=== PATIENT | male | born 1955 | race Asian ===

== ENCOUNTER 2022-04-06 15:52 | Inpatient (IN) | payer MEDICARE ==
[~2022-04-06] VITALS: Ht 177.8 cm; Wt 64.0 kg
[2022-04-06 20:55] VITALS: BP 122/77
[2022-04-06] MEDS: SENNA 187 MG TABLET PO SCH ×2 (21:30→22:52)
[2022-04-06] MEDS: DOCUSATE SODIUM 250 MG CAPSULE PO SCH ×2 (21:30→22:52)
[2022-04-06] MEDS ORDERED: DEXTROSE 50%-WATER 25 GM/50 ML SYRINGE IVP PRN (21:45)
[2022-04-06] MEDS ORDERED: BISACODYL 5 MG EC TABLET PO PRN (22:00)
[2022-04-06 22:36] LABS: GLUCOMETER DEV NAME(LOC) 2WR.2B; GLUCOSE,POINT OF CARE 96 MG/DL (70-110)
[2022-04-06] MEDS: BACLOFEN 10 MG TABLET PO SCH (22:52)
[2022-04-06] MEDS: MELATONIN 5 MG TABLET PO PRN (22:52)
[2022-04-06] MEDS: ATORVASTATIN CALCIUM 40 MG TABLET PO SCH (22:52)
[2022-04-06] MEDS: AMIODARONE HCL 200 MG TABLET PO SCH (22:52)
[2022-04-06] MEDS: METOPROLOL TARTRATE 25 MG TABLET PO SCH (22:52)
[2022-04-06 22:53] VITALS: BP 126/71
[2022-04-06] MEDS: APIXABAN 5 MG TABLET PO SCH (22:53)
[2022-04-06] MEDS: ETHYL ALCOHOL 62% ANTISEPTIC NASAL SANITIZER 0.6 ML AMPUL NASAL SCH (22:53)
[2022-04-07] MEDS: ACETAMINOPHEN 325 MG TABLET PO PRN ×3 (03:50→16:07)
[2022-04-07 07:12] LABS: BASOPHILS % (AUTO) 0.8 % (0.0-2.0); EOSINOPHILS % (AUTO) 2.5 % (1.0-6.0); HEMATOCRIT 37.2 % (41-53); HEMOGLOBIN 12.3 g/dL (13.5-17.5); LYMPHOCYTES # (AUTO) 0.9 K/uL (1.0-4.8); MEAN CORPUSCULAR HEMOGLOBIN 28.2 pg (26.0-34.0); MEAN CORPUSCULAR HGB CONC 32.9 G/dL (31.0-37.0); MEAN CORPUSCULAR VOLUME 86 fL (80-100); MONOCYTES # (AUTO) 0.5 K/uL (0.1-1.0); MONOCYTES % (AUTO) 8.6 % (2.0-9.0); NEUTROPHILS # (AUTO) 4.7 K/uL (1.8-7.7); NEUTROPHILS % (AUTO) 74.1 % (40.0-70.0); PLATELET COUNT (AUTO) 600 K/uL (150-450); RED BLOOD CELL COUNT(AUTO) 4.35 MIL/uL (4.50-5.90); RED CELL DISTRIBUTION WIDTH 14.4 % (11.5-14.5)
[2022-04-07 07:31] LABS: ALANINE AMINOTRANSFERASE 19 U/L (12-78); ALBUMIN 2.6 g/dL (3.4-5.0); ALKALINE PHOSPHATASE 100 U/L (46-116); ANION GAP 5 mmol/L (8-16); ASPARTATE AMINOTRANSFERASE 33 U/L (15-37); BILIRUBIN,TOTAL 0.6 mg/dL (0.1-1.0); CALCIUM, TOTAL 8.9 mg/dL (8.8-10.5); CARBON DIOXIDE 30 mmol/L (22-29); CHLORIDE 102 mmol/L (98-107); CREATININE 0.92 mg/dL (0.60-1.30); GLUCOSE,RANDOM 120 mg/dL (70-110); POTASSIUM 3.8 mmol/L (3.5-5.1); SODIUM SERUM 137 mmol/L (136-145); TOTAL PROTEIN, SERUM 7.1 g/dL (6.4-8.2); UREA NITROGEN, BLOOD 15 mg/dL (7-18)
[2022-04-07 07:36] LABS: GLOMERULAR FILTR. RATE CALC > 60 mL/min (>60)
[2022-04-07 08:10] VITALS: BP 100/67
[2022-04-07 09:11] LABS: GLUCOMETER DEV NAME(LOC) 2WR.1C; GLUCOSE,POINT OF CARE 120 MG/DL (70-110)
[2022-04-07 09:25] VITALS: BP 106/69
[2022-04-07] MEDS: MetFORMIN HCL 500 MG TABLET PO SCH ×2 (09:28→16:45)
[2022-04-07] MEDS: APIXABAN 5 MG TABLET PO SCH ×2 (09:28→20:04)
[2022-04-07] MEDS: ETHYL ALCOHOL 62% ANTISEPTIC NASAL SANITIZER 0.6 ML AMPUL NASAL SCH ×2 (09:28→20:05)
[2022-04-07] MEDS: BACLOFEN 10 MG TABLET PO SCH ×3 (09:28→20:04)
[2022-04-07] MEDS: METOPROLOL TARTRATE 25 MG TABLET PO SCH ×2 (09:29→20:04)
[2022-04-07] MEDS: AMIODARONE HCL 200 MG TABLET PO SCH ×3 (09:29→20:04)
[2022-04-07 10:25] VITALS: BP 105/69
[2022-04-07] MEDS: INSULIN LISPRO 100 UNITS/ML SQ PRN ×2 (12:29→20:14)
[2022-04-07 13:56] LABS: GLUCOMETER DEV NAME(LOC) 2WR.1C; GLUCOSE,POINT OF CARE 141 MG/DL (70-110)
[2022-04-07 16:56] VITALS: BP 108/66
[2022-04-07 18:01] LABS: GLUCOMETER DEV NAME(LOC) 2WR.2B; GLUCOSE,POINT OF CARE 127 MG/DL (70-110)
[2022-04-07 19:50] VITALS: BP 128/73
[2022-04-07] MEDS: SENNA 187 MG TABLET PO SCH (20:03)
[2022-04-07] MEDS: DOCUSATE SODIUM 250 MG CAPSULE PO SCH (20:03)
[2022-04-07] MEDS: TAMSULOSIN HCL 0.4 MG CAPSULE PO SCH (20:03)
[2022-04-07] MEDS: ATORVASTATIN CALCIUM 40 MG TABLET PO SCH (20:04)
[2022-04-07 21:41] LABS: GLUCOMETER DEV NAME(LOC) 2WR.2B; GLUCOSE,POINT OF CARE 147 MG/DL (70-110)
[2022-04-07] MEDS: MELATONIN 5 MG TABLET PO PRN (23:05)
[2022-04-08 07:11] LABS: GLUCOMETER DEV NAME(LOC) 2WR.1C; GLUCOSE,POINT OF CARE 113 MG/DL (70-110)
[2022-04-08 08:05] VITALS: BP 123/71
[2022-04-08] MEDS: BACLOFEN 10 MG TABLET PO SCH ×3 (08:25→20:42)
[2022-04-08] MEDS: MetFORMIN HCL 500 MG TABLET PO SCH ×2 (08:25→17:08)
[2022-04-08] MEDS: METOPROLOL TARTRATE 25 MG TABLET PO SCH ×2 (08:25→20:43)
[2022-04-08] MEDS: AMIODARONE HCL 200 MG TABLET PO SCH ×2 (08:25→20:43)
[2022-04-08] MEDS: APIXABAN 5 MG TABLET PO SCH ×2 (08:25→20:44)
[2022-04-08] MEDS: ETHYL ALCOHOL 62% ANTISEPTIC NASAL SANITIZER 0.6 ML AMPUL NASAL SCH ×2 (08:26→20:41)
[2022-04-08 12:32] LABS: GLUCOMETER DEV NAME(LOC) 2WR.2B; GLUCOSE,POINT OF CARE 101 MG/DL (70-110)
[2022-04-08 18:17] LABS: GLUCOMETER DEV NAME(LOC) 2WR.2B; GLUCOSE,POINT OF CARE 127 MG/DL (70-110)
[2022-04-08] MEDS: TAMSULOSIN HCL 0.4 MG CAPSULE PO SCH (20:42)
[2022-04-08] MEDS: SENNA 187 MG TABLET PO SCH (20:43)
[2022-04-08] MEDS: ATORVASTATIN CALCIUM 40 MG TABLET PO SCH (20:43)
[2022-04-08] MEDS: MELATONIN 5 MG TABLET PO PRN (20:43)
[2022-04-08] MEDS: DOCUSATE SODIUM 250 MG CAPSULE PO SCH (20:44)
[2022-04-08 21:00] VITALS: BP 142/89
[2022-04-08 22:11] LABS: GLUCOMETER DEV NAME(LOC) 2WR.2B; GLUCOSE,POINT OF CARE 91 MG/DL (70-110)
[2022-04-09 06:52] LABS: GLUCOMETER DEV NAME(LOC) 2WR.2B; GLUCOSE,POINT OF CARE 101 MG/DL (70-110)
[2022-04-09 08:20] VITALS: BP 112/66
[2022-04-09] MEDS: DOCUSATE SODIUM 250 MG CAPSULE PO SCH ×2 (09:34→20:45)
[2022-04-09] MEDS: BACLOFEN 10 MG TABLET PO SCH ×3 (09:35→20:46)
[2022-04-09] MEDS: AMIODARONE HCL 200 MG TABLET PO SCH ×2 (09:35→20:46)
[2022-04-09] MEDS: MetFORMIN HCL 500 MG TABLET PO SCH ×2 (09:35→17:59)
[2022-04-09] MEDS: APIXABAN 5 MG TABLET PO SCH ×2 (09:35→20:46)
[2022-04-09] MEDS: METOPROLOL TARTRATE 25 MG TABLET PO SCH ×2 (09:36→20:47)
[2022-04-09] MEDS: ETHYL ALCOHOL 62% ANTISEPTIC NASAL SANITIZER 0.6 ML AMPUL NASAL SCH ×2 (09:36→20:45)
[2022-04-09 12:26] LABS: GLUCOMETER DEV NAME(LOC) 2WR.2B; GLUCOSE,POINT OF CARE 127 MG/DL (70-110)
[2022-04-09] MEDS: FAMOTIDINE 20 MG TABLET PO SCH (17:59)
[2022-04-09 19:01] LABS: GLUCOMETER DEV NAME(LOC) 2WR.2B; GLUCOSE,POINT OF CARE 130 MG/DL (70-110)
[2022-04-09 20:02] VITALS: BP 102/60
[2022-04-09 20:40] VITALS: BP 112/74
[2022-04-09] MEDS: TAMSULOSIN HCL 0.4 MG CAPSULE PO SCH (20:47)
[2022-04-09] MEDS: ATORVASTATIN CALCIUM 40 MG TABLET PO SCH (20:47)
[2022-04-09] MEDS: MELATONIN 5 MG TABLET PO PRN (20:50)
[2022-04-09] MEDS: SENNA 187 MG TABLET PO SCH (21:18)
[2022-04-09 21:46] LABS: GLUCOMETER DEV NAME(LOC) 2WR.2B; GLUCOSE,POINT OF CARE 112 MG/DL (70-110)
[2022-04-10] MEDS: DOCUSATE SODIUM 283 MG/5 ML MINI-ENEMA PR PRN (06:04)
[2022-04-10] MEDS: FAMOTIDINE 20 MG TABLET PO SCH ×2 (06:04→16:43)
[2022-04-10 07:35] VITALS: BP 138/83
[2022-04-10] MEDS: ETHYL ALCOHOL 62% ANTISEPTIC NASAL SANITIZER 0.6 ML AMPUL NASAL SCH ×2 (08:04→20:55)
[2022-04-10] MEDS: DOCUSATE SODIUM 250 MG CAPSULE PO SCH ×2 (08:04→20:55)
[2022-04-10] MEDS: BACLOFEN 10 MG TABLET PO SCH ×3 (08:05→20:55)
[2022-04-10] MEDS: TAMSULOSIN HCL 0.4 MG CAPSULE PO SCH ×2 (08:05→20:56)
[2022-04-10] MEDS: APIXABAN 5 MG TABLET PO SCH ×2 (08:05→20:55)
[2022-04-10] MEDS: METOPROLOL TARTRATE 25 MG TABLET PO SCH ×2 (08:06→20:56)
[2022-04-10] MEDS: AMIODARONE HCL 200 MG TABLET PO SCH ×2 (08:08→20:56)
[2022-04-10] MEDS: MetFORMIN HCL 500 MG TABLET PO SCH ×2 (08:12→16:43)
[2022-04-10 08:36] LABS: GLUCOMETER DEV NAME(LOC) 2WR.1C; GLUCOSE,POINT OF CARE 111 MG/DL (70-110)
[2022-04-10] MEDS: INSULIN LISPRO 100 UNITS/ML SQ PRN ×2 (12:38→17:50)
[2022-04-10 15:11] LABS: GLUCOMETER DEV NAME(LOC) 2WR.1C; GLUCOSE,POINT OF CARE 142 MG/DL (70-110)
[2022-04-10 17:16] LABS: GLUCOMETER DEV NAME(LOC) 2WR.1C; GLUCOSE,POINT OF CARE 181 MG/DL (70-110)
[2022-04-10 20:40] VITALS: BP 108/64
[2022-04-10] MEDS: MELATONIN 5 MG TABLET PO PRN (20:55)
[2022-04-10] MEDS: SENNA 187 MG TABLET PO SCH (20:56)
[2022-04-10] MEDS: ATORVASTATIN CALCIUM 40 MG TABLET PO SCH (20:56)
[2022-04-11 02:06] LABS: APPEARANCE,URINE CLEAR (CLEAR); BILIRUBIN,URINE NEGATIVE (NEGATIVE); GLUCOSE, URINE (UA) NEGATIVE (NEGATIVE); KETONES,URINE NEGATIVE (NEGATIVE); LEUKOCYTE ESTERASE ,URINE NEGATIVE (NEGATIVE); NITRATE,URINE NEGATIVE (NEGATIVE); OCCULT BLOOD,URINE NEGATIVE (NEGATIVE); PH,URINE 5.5 (5.0-8.0); PROTEIN,URINE NEGATIVE (NEGATIVE); SPECIFIC GRAVITIY, URINE 1.019 (1.003-1.030)
[2022-04-11 02:17] LABS: BACTERIA,URINE None Seen /HPF (None Seen); RBC,URINE 0-2 /HPF (0-2); WBC,URINE None Seen /HPF (0-5)
[2022-04-11 05:26] LABS: GLUCOMETER DEV NAME(LOC) 2WR.1C; GLUCOSE,POINT OF CARE 121 MG/DL (70-110)
[2022-04-11] MEDS: FAMOTIDINE 20 MG TABLET PO SCH ×2 (06:05→16:19)
[2022-04-11 06:51] LABS: GLUCOMETER DEV NAME(LOC) 2WR.2B; GLUCOSE,POINT OF CARE 98 MG/DL (70-110)
[2022-04-11 08:02] VITALS: BP 115/65
[2022-04-11] MEDS: ETHYL ALCOHOL 62% ANTISEPTIC NASAL SANITIZER 0.6 ML AMPUL NASAL SCH ×2 (08:10→20:20)
[2022-04-11] MEDS: DOCUSATE SODIUM 250 MG CAPSULE PO SCH ×2 (08:10→20:25)
[2022-04-11] MEDS: MetFORMIN HCL 500 MG TABLET PO SCH ×2 (08:10→16:19)
[2022-04-11] MEDS: APIXABAN 5 MG TABLET PO SCH ×2 (08:10→20:20)
[2022-04-11] MEDS: TAMSULOSIN HCL 0.4 MG CAPSULE PO SCH ×2 (08:11→20:20)
[2022-04-11] MEDS: BACLOFEN 10 MG TABLET PO SCH ×3 (08:11→20:20)
[2022-04-11] MEDS: METOPROLOL TARTRATE 25 MG TABLET PO SCH ×2 (08:11→20:20)
[2022-04-11] MEDS: AMIODARONE HCL 200 MG TABLET PO SCH ×2 (08:11→20:19)
[2022-04-11 13:16] LABS: GLUCOMETER DEV NAME(LOC) 2WR.2B; GLUCOSE,POINT OF CARE 110 MG/DL (70-110)
[2022-04-11 19:37] LABS: GLUCOMETER DEV NAME(LOC) 2WR.2B; GLUCOSE,POINT OF CARE 123 MG/DL (70-110)
[2022-04-11 20:01] VITALS: BP 125/79
[2022-04-11] MEDS: ATORVASTATIN CALCIUM 40 MG TABLET PO SCH (20:20)
[2022-04-11] MEDS: SENNA 187 MG TABLET PO SCH (20:20)
[2022-04-11] MEDS: MELATONIN 5 MG TABLET PO PRN (20:25)
[2022-04-11 21:46] LABS: GLUCOMETER DEV NAME(LOC) 2WR.2B; GLUCOSE,POINT OF CARE 82 MG/DL (70-110)
[2022-04-12] MEDS ORDERED: METF-1211 PO (06:20)
[2022-04-12] MEDS ORDERED: FAMO20TA8 PO (06:21)
[2022-04-12] MEDS ORDERED: APIX5TAB PO (06:22)
[2022-04-12] MEDS ORDERED: TAMS-13 PO (06:22)
[2022-04-12] MEDS ORDERED: METO25 PO (06:23)
[2022-04-12] MEDS ORDERED: BACL10TA PO (06:24)
[2022-04-12] MEDS ORDERED: ATOR40TA28 PO (06:24)
[2022-04-12] MEDS ORDERED: DOCU-350 PO (06:25)
[2022-04-12] MEDS ORDERED: AMIO200T68 PO (06:27)
[2022-04-12] MEDS: FAMOTIDINE 20 MG TABLET PO SCH ×2 (06:37→16:17)
[2022-04-12 07:10] LABS: GLUCOMETER DEV NAME(LOC) 2WR.1C; GLUCOSE,POINT OF CARE 98 MG/DL (70-110)
[2022-04-12 07:30] VITALS: BP 118/77
[2022-04-12] MEDS: MetFORMIN HCL 500 MG TABLET PO SCH ×2 (08:04→16:17)
[2022-04-12] MEDS: ETHYL ALCOHOL 62% ANTISEPTIC NASAL SANITIZER 0.6 ML AMPUL NASAL SCH ×2 (08:04→21:00)
[2022-04-12] MEDS: DOCUSATE SODIUM 250 MG CAPSULE PO SCH ×2 (08:04→21:00)
[2022-04-12] MEDS: TAMSULOSIN HCL 0.4 MG CAPSULE PO SCH ×2 (08:05→21:01)
[2022-04-12] MEDS: APIXABAN 5 MG TABLET PO SCH ×2 (08:05→21:00)
[2022-04-12] MEDS: BACLOFEN 10 MG TABLET PO SCH ×3 (08:05→21:02)
[2022-04-12] MEDS: AMIODARONE HCL 200 MG TABLET PO SCH ×2 (08:06→21:01)
[2022-04-12] MEDS: METOPROLOL TARTRATE 25 MG TABLET PO SCH ×2 (08:06→21:02)
[2022-04-12 20:00] VITALS: BP 129/85
[2022-04-12 20:01] LABS: GLUCOMETER DEV NAME(LOC) 2WR.1C; GLUCOSE,POINT OF CARE 103 MG/DL (70-110)
[2022-04-12 20:01] LABS: GLUCOMETER DEV NAME(LOC) 2WR.1C; GLUCOSE,POINT OF CARE 89 MG/DL (70-110)
[2022-04-12] MEDS: ATORVASTATIN CALCIUM 40 MG TABLET PO SCH (21:06)
[2022-04-12] MEDS: SENNA 187 MG TABLET PO SCH (21:06)
[2022-04-12 21:26] LABS: GLUCOMETER DEV NAME(LOC) 2WR.2B; GLUCOSE,POINT OF CARE 95 MG/DL (70-110)
[2022-04-12] MEDS: MELATONIN 5 MG TABLET PO PRN (21:55)
[2022-04-13] MEDS: FAMOTIDINE 20 MG TABLET PO SCH ×2 (06:16→16:18)
[2022-04-13] MEDS: MetFORMIN HCL 500 MG TABLET PO SCH ×2 (08:04→16:19)
[2022-04-13] MEDS: TAMSULOSIN HCL 0.4 MG CAPSULE PO SCH ×2 (08:05→21:27)
[2022-04-13] MEDS: BACLOFEN 10 MG TABLET PO SCH ×3 (08:05→21:27)
[2022-04-13] MEDS: APIXABAN 5 MG TABLET PO SCH ×2 (08:05→21:26)
[2022-04-13] MEDS: ETHYL ALCOHOL 62% ANTISEPTIC NASAL SANITIZER 0.6 ML AMPUL NASAL SCH ×2 (08:05→21:26)
[2022-04-13] MEDS: AMIODARONE HCL 200 MG TABLET PO SCH (08:05)
[2022-04-13] MEDS: DOCUSATE SODIUM 250 MG CAPSULE PO SCH ×2 (08:05→21:27)
[2022-04-13] MEDS: METOPROLOL TARTRATE 25 MG TABLET PO SCH ×2 (08:05→21:27)
[2022-04-13 08:12] VITALS: BP 115/72
[2022-04-13 08:22] LABS: GLUCOMETER DEV NAME(LOC) 2WR.1C; GLUCOSE,POINT OF CARE 75 MG/DL (70-110)
[2022-04-13 12:20] LABS: GLUCOMETER DEV NAME(LOC) 2WR.2B; GLUCOSE,POINT OF CARE 86 MG/DL (70-110)
[2022-04-13 18:31] LABS: GLUCOMETER DEV NAME(LOC) 2WR.1C; GLUCOSE,POINT OF CARE 118 MG/DL (70-110)
[2022-04-13 20:00] VITALS: BP 129/80
[2022-04-13] MEDS: ATORVASTATIN CALCIUM 40 MG TABLET PO SCH (21:26)
[2022-04-13] MEDS: SENNA 187 MG TABLET PO SCH (21:27)
[2022-04-13] MEDS: MELATONIN 5 MG TABLET PO PRN (21:29)
[2022-04-14] MEDS: DOCUSATE SODIUM 283 MG/5 ML MINI-ENEMA PR PRN (03:19)
[2022-04-14 05:56] LABS: GLUCOMETER DEV NAME(LOC) 2WR.1C; GLUCOSE,POINT OF CARE 85 MG/DL (70-110)
[2022-04-14] MEDS: FAMOTIDINE 20 MG TABLET PO SCH ×2 (06:04→17:04)
[2022-04-14 06:51] LABS: GLUCOMETER DEV NAME(LOC) 2WR.1C; GLUCOSE,POINT OF CARE 94 MG/DL (70-110)
[2022-04-14] MEDS: APIXABAN 5 MG TABLET PO SCH ×2 (08:08→19:59)
[2022-04-14] MEDS: TAMSULOSIN HCL 0.4 MG CAPSULE PO SCH ×2 (08:09→19:58)
[2022-04-14] MEDS: BACLOFEN 10 MG TABLET PO SCH ×3 (08:09→19:58)
[2022-04-14] MEDS: AMIODARONE HCL 200 MG TABLET PO SCH (08:09)
[2022-04-14] MEDS: METOPROLOL TARTRATE 25 MG TABLET PO SCH ×2 (08:09→19:58)
[2022-04-14] MEDS: DOCUSATE SODIUM 250 MG CAPSULE PO SCH ×2 (08:09→19:58)
[2022-04-14] MEDS: MetFORMIN HCL 500 MG TABLET PO SCH (08:09)
[2022-04-14 08:10] VITALS: BP 122/78
[2022-04-14] MEDS: ETHYL ALCOHOL 62% ANTISEPTIC NASAL SANITIZER 0.6 ML AMPUL NASAL SCH ×2 (08:10→19:58)
[2022-04-14 19:06] LABS: GLUCOMETER DEV NAME(LOC) 2WR.2B; GLUCOSE,POINT OF CARE 121 MG/DL (70-110)
[2022-04-14] MEDS: ATORVASTATIN CALCIUM 40 MG TABLET PO SCH (19:58)
[2022-04-14 19:59] VITALS: BP 103/64
[2022-04-14] MEDS: SENNA 187 MG TABLET PO SCH (19:59)
[2022-04-14 20:10] VITALS: BP 99/61
[2022-04-14 21:26] LABS: GLUCOMETER DEV NAME(LOC) 2WR.2B; GLUCOSE,POINT OF CARE 83 MG/DL (70-110)
[2022-04-14] MEDS: MELATONIN 5 MG TABLET PO PRN (21:56)
[2022-04-15 05:26] LABS: GLUCOMETER DEV NAME(LOC) 2WR.1C; GLUCOSE,POINT OF CARE 115 MG/DL (70-110)
[2022-04-15] MEDS: FAMOTIDINE 20 MG TABLET PO SCH ×2 (06:30→17:19)
[2022-04-15 06:42] LABS: GLUCOMETER DEV NAME(LOC) 2WR.1C; GLUCOSE,POINT OF CARE 115 MG/DL (70-110)
[2022-04-15 08:01] VITALS: BP 113/77
[2022-04-15] MEDS: APIXABAN 5 MG TABLET PO SCH ×2 (08:32→20:31)
[2022-04-15] MEDS: DOCUSATE SODIUM 250 MG CAPSULE PO SCH ×2 (08:34→21:32)
[2022-04-15] MEDS: TAMSULOSIN HCL 0.4 MG CAPSULE PO SCH ×2 (08:35→20:31)
[2022-04-15] MEDS: BACLOFEN 10 MG TABLET PO SCH ×3 (08:35→20:32)
[2022-04-15] MEDS: METOPROLOL TARTRATE 25 MG TABLET PO SCH ×2 (08:36→20:34)
[2022-04-15] MEDS: AMIODARONE HCL 200 MG TABLET PO SCH (08:37)
[2022-04-15] MEDS: ETHYL ALCOHOL 62% ANTISEPTIC NASAL SANITIZER 0.6 ML AMPUL NASAL SCH ×2 (10:41→20:31)
[2022-04-15 13:31] LABS: GLUCOMETER DEV NAME(LOC) 2WR.2B; GLUCOSE,POINT OF CARE 103 MG/DL (70-110)
[2022-04-15] MEDS: DOCUSATE SODIUM 283 MG/5 ML MINI-ENEMA PR PRN (13:56)
[2022-04-15 18:21] LABS: GLUCOMETER DEV NAME(LOC) 2WR.2B; GLUCOSE,POINT OF CARE 96 MG/DL (70-110)
[2022-04-15 19:38] VITALS: BP 100/60
[2022-04-15 20:27] VITALS: BP 123/80
[2022-04-15] MEDS: SENNA 187 MG TABLET PO SCH (20:32)
[2022-04-15] MEDS: ATORVASTATIN CALCIUM 40 MG TABLET PO SCH (20:32)
[2022-04-15] MEDS: INSULIN LISPRO 100 UNITS/ML SQ PRN (20:37)
[2022-04-15 21:21] LABS: GLUCOMETER DEV NAME(LOC) 2WR.2B; GLUCOSE,POINT OF CARE 224 MG/DL (70-110)
[2022-04-15] MEDS: MELATONIN 5 MG TABLET PO PRN (21:32)
[2022-04-16] MEDS: FAMOTIDINE 20 MG TABLET PO SCH ×2 (06:00→16:00)
[2022-04-16 06:21] LABS: GLUCOMETER DEV NAME(LOC) 2WR.2B; GLUCOSE,POINT OF CARE 89 MG/DL (70-110)
[2022-04-16 07:48] VITALS: BP 116/75
[2022-04-16] MEDS: DOCUSATE SODIUM 250 MG CAPSULE PO SCH ×2 (09:07→20:31)
[2022-04-16] MEDS: ETHYL ALCOHOL 62% ANTISEPTIC NASAL SANITIZER 0.6 ML AMPUL NASAL SCH ×2 (09:07→20:27)
[2022-04-16] MEDS: APIXABAN 5 MG TABLET PO SCH ×2 (09:08→20:31)
[2022-04-16] MEDS: BACLOFEN 10 MG TABLET PO SCH ×3 (09:08→20:28)
[2022-04-16] MEDS: TAMSULOSIN HCL 0.4 MG CAPSULE PO SCH ×2 (09:08→20:28)
[2022-04-16] MEDS: METOPROLOL TARTRATE 25 MG TABLET PO SCH ×2 (09:08→20:13)
[2022-04-16] MEDS: AMIODARONE HCL 200 MG TABLET PO SCH (09:09)
[2022-04-16 13:16] LABS: GLUCOMETER DEV NAME(LOC) 2WR.2B; GLUCOSE,POINT OF CARE 95 MG/DL (70-110)
[2022-04-16 17:17] LABS: GLUCOMETER DEV NAME(LOC) 2WR.2B; GLUCOSE,POINT OF CARE 87 MG/DL (70-110)
[2022-04-16 20:00] VITALS: BP 123/73
[2022-04-16] MEDS: SENNA 187 MG TABLET PO SCH (20:28)
[2022-04-16] MEDS: MELATONIN 5 MG TABLET PO PRN (20:28)
[2022-04-16] MEDS: ATORVASTATIN CALCIUM 40 MG TABLET PO SCH (20:29)
[2022-04-17 02:56] LABS: GLUCOMETER DEV NAME(LOC) 2WR.1C; GLUCOSE,POINT OF CARE 117 MG/DL (70-110)
[2022-04-17] MEDS: FAMOTIDINE 20 MG TABLET PO SCH ×2 (06:14→15:26)
[2022-04-17 06:31] LABS: GLUCOMETER DEV NAME(LOC) 2WR.1C; GLUCOSE,POINT OF CARE 84 MG/DL (70-110)
[2022-04-17] MEDS: ETHYL ALCOHOL 62% ANTISEPTIC NASAL SANITIZER 0.6 ML AMPUL NASAL SCH ×2 (08:22→21:02)
[2022-04-17] MEDS: METOPROLOL TARTRATE 25 MG TABLET PO SCH ×2 (08:23→21:01)
[2022-04-17] MEDS: BACLOFEN 10 MG TABLET PO SCH ×3 (08:23→21:03)
[2022-04-17] MEDS: TAMSULOSIN HCL 0.4 MG CAPSULE PO SCH ×2 (08:23→21:01)
[2022-04-17] MEDS: AMIODARONE HCL 200 MG TABLET PO SCH (08:23)
[2022-04-17] MEDS: DOCUSATE SODIUM 250 MG CAPSULE PO SCH ×2 (08:23→21:01)
[2022-04-17] MEDS: APIXABAN 5 MG TABLET PO SCH ×2 (08:24→21:01)
[2022-04-17 08:37] VITALS: BP 109/73
[2022-04-17 16:52] LABS: GLUCOMETER DEV NAME(LOC) 2WR.1C; GLUCOSE,POINT OF CARE 101 MG/DL (70-110)
[2022-04-17 20:00] VITALS: BP 129/79
[2022-04-17] MEDS: SENNA 187 MG TABLET PO SCH (21:01)
[2022-04-17] MEDS: ATORVASTATIN CALCIUM 40 MG TABLET PO SCH (21:01)
[2022-04-17] MEDS: MELATONIN 5 MG TABLET PO PRN (21:01)
[2022-04-18] MEDS: FAMOTIDINE 20 MG TABLET PO SCH ×2 (06:00→15:56)
[2022-04-18 07:46] LABS: APPEARANCE,URINE HAZY (CLEAR); BILIRUBIN,URINE NEGATIVE (NEGATIVE); GLUCOSE, URINE (UA) NEGATIVE (NEGATIVE); KETONES,URINE NEGATIVE (NEGATIVE); LEUKOCYTE ESTERASE ,URINE MODERATE (NEGATIVE); NITRATE,URINE POSITIVE (NEGATIVE); OCCULT BLOOD,URINE LARGE (NEGATIVE); PH,URINE 6.5 (5.0-8.0); PROTEIN,URINE TRACE mg/dL (NEGATIVE); SPECIFIC GRAVITIY, URINE 1.018 (1.003-1.030); UROBILINOGEN,URINE <=1.0 mg/dL (<=1.0)
[2022-04-18 08:05] VITALS: BP 114/76
[2022-04-18] MEDS: METOPROLOL TARTRATE 25 MG TABLET PO SCH ×2 (08:10→21:41)
[2022-04-18] MEDS: DOCUSATE SODIUM 250 MG CAPSULE PO SCH ×2 (08:10→21:41)
[2022-04-18] MEDS: APIXABAN 5 MG TABLET PO SCH ×2 (08:10→21:41)
[2022-04-18] MEDS: ETHYL ALCOHOL 62% ANTISEPTIC NASAL SANITIZER 0.6 ML AMPUL NASAL SCH ×2 (08:10→21:41)
[2022-04-18] MEDS: AMIODARONE HCL 200 MG TABLET PO SCH (08:11)
[2022-04-18] MEDS: BACLOFEN 10 MG TABLET PO SCH ×3 (08:11→21:41)
[2022-04-18] MEDS: TAMSULOSIN HCL 0.4 MG CAPSULE PO SCH ×2 (08:11→21:41)
[2022-04-18 08:20] LABS: BACTERIA,URINE Many /HPF (None Seen); RBC,URINE >100 /HPF (0-2); WBC,URINE 26-50 /HPF (0-5)
[2022-04-18 08:41] LABS: GLUCOMETER DEV NAME(LOC) 2WR.1C; GLUCOSE,POINT OF CARE 110 MG/DL (70-110)
[2022-04-18] MEDS: NITROFURANTOIN MONOHYD/M-CRYST 100 MG CAPSULE [MACROBID] PO SCH ×2 (10:36→21:41)
[2022-04-18 17:31] LABS: GLUCOMETER DEV NAME(LOC) 2WR.1C; GLUCOSE,POINT OF CARE 114 MG/DL (70-110)
[2022-04-18 20:20] VITALS: BP 109/65
[2022-04-18] MEDS: MELATONIN 5 MG TABLET PO PRN (21:41)
[2022-04-18] MEDS: SENNA 187 MG TABLET PO SCH (21:41)
[2022-04-18] MEDS: ATORVASTATIN CALCIUM 40 MG TABLET PO SCH (21:41)
[2022-04-19] MEDS: FAMOTIDINE 20 MG TABLET PO SCH ×2 (06:30→16:27)
[2022-04-19 06:56] LABS: GLUCOMETER DEV NAME(LOC) 2WR.2B; GLUCOSE,POINT OF CARE 97 MG/DL (70-110)
[2022-04-19 07:36] LABS: BASOPHILS % (AUTO) 0.8 % (0.0-2.0); EOSINOPHILS % (AUTO) 4.1 % (1.0-6.0); HEMATOCRIT 37.1 % (41-53); HEMOGLOBIN 12.2 g/dL (13.5-17.5); LYMPHOCYTES # (AUTO) 1.1 K/uL (1.0-4.8); LYMPHOCYTES % (AUTO) 20.4 % (22.0-44.0); MEAN CORPUSCULAR HEMOGLOBIN 28.2 pg (26.0-34.0); MEAN CORPUSCULAR HGB CONC 32.8 G/dL (31.0-37.0); MEAN CORPUSCULAR VOLUME 86 fL (80-100); MONOCYTES # (AUTO) 0.4 K/uL (0.1-1.0); MONOCYTES % (AUTO) 7.6 % (2.0-9.0); NEUTROPHILS # (AUTO) 3.7 K/uL (1.8-7.7); NEUTROPHILS % (AUTO) 67.1 % (40.0-70.0); PLATELET COUNT (AUTO) 558 K/uL (150-450); RED BLOOD CELL COUNT(AUTO) 4.31 MIL/uL (4.50-5.90); RED CELL DISTRIBUTION WIDTH 14.5 % (11.5-14.5)
[2022-04-19 07:49] LABS: ANION GAP 3 mmol/L (8-16); CALCIUM, TOTAL 9.3 mg/dL (8.8-10.5); CARBON DIOXIDE 33 mmol/L (22-29); CHLORIDE 102 mmol/L (98-107); GLOMERULAR FILTR. RATE CALC > 60 mL/min (>60); GLUCOSE,RANDOM 113 mg/dL (70-110); SODIUM SERUM 138 mmol/L (136-145); UREA NITROGEN, BLOOD 17 mg/dL (7-18)
[2022-04-19 08:00] VITALS: BP 113/69
[2022-04-19] MEDS: ETHYL ALCOHOL 62% ANTISEPTIC NASAL SANITIZER 0.6 ML AMPUL NASAL SCH ×2 (09:14→21:29)
[2022-04-19] MEDS: TAMSULOSIN HCL 0.4 MG CAPSULE PO SCH ×2 (09:14→21:30)
[2022-04-19] MEDS: NITROFURANTOIN MONOHYD/M-CRYST 100 MG CAPSULE [MACROBID] PO SCH ×2 (09:14→21:30)
[2022-04-19] MEDS: METOPROLOL TARTRATE 25 MG TABLET PO SCH ×2 (09:15→21:30)
[2022-04-19] MEDS: AMIODARONE HCL 200 MG TABLET PO SCH (09:15)
[2022-04-19] MEDS: DOCUSATE SODIUM 250 MG CAPSULE PO SCH ×2 (09:16→21:30)
[2022-04-19] MEDS: BACLOFEN 10 MG TABLET PO SCH ×3 (09:16→21:30)
[2022-04-19] MEDS: APIXABAN 5 MG TABLET PO SCH ×2 (09:16→21:30)
[2022-04-19] MEDS: INSULIN LISPRO 100 UNITS/ML SQ PRN (18:01)
[2022-04-19 18:46] LABS: GLUCOMETER DEV NAME(LOC) 2WR.2B; GLUCOSE,POINT OF CARE 172 MG/DL (70-110)
[2022-04-19 20:20] VITALS: BP 102/60
[2022-04-19 21:00] VITALS: BP 113/73
[2022-04-19] MEDS: ATORVASTATIN CALCIUM 40 MG TABLET PO SCH (21:29)
[2022-04-19] MEDS: MELATONIN 5 MG TABLET PO PRN (21:29)
[2022-04-19] MEDS: SENNA 187 MG TABLET PO SCH (21:35)
[2022-04-20 00:14] VITALS: BP 102/60
[2022-04-20] MEDS: FAMOTIDINE 20 MG TABLET PO SCH ×2 (06:21→16:20)
[2022-04-20] MEDS: METOPROLOL TARTRATE 25 MG TABLET PO SCH ×2 (07:38→20:29)
[2022-04-20] MEDS: DOCUSATE SODIUM 250 MG CAPSULE PO SCH ×2 (07:38→20:27)
[2022-04-20] MEDS: ETHYL ALCOHOL 62% ANTISEPTIC NASAL SANITIZER 0.6 ML AMPUL NASAL SCH ×2 (07:38→20:27)
[2022-04-20] MEDS: AMIODARONE HCL 200 MG TABLET PO SCH (07:39)
[2022-04-20] MEDS: TAMSULOSIN HCL 0.4 MG CAPSULE PO SCH ×2 (07:39→20:28)
[2022-04-20] MEDS: APIXABAN 5 MG TABLET PO SCH ×2 (07:39→20:28)
[2022-04-20] MEDS: NITROFURANTOIN MONOHYD/M-CRYST 100 MG CAPSULE [MACROBID] PO SCH ×2 (07:39→20:29)
[2022-04-20] MEDS: BACLOFEN 10 MG TABLET PO SCH ×3 (07:39→20:28)
[2022-04-20 09:07] VITALS: BP 142/97
[2022-04-20 17:11] LABS: GLUCOMETER DEV NAME(LOC) 2WR.1C; GLUCOSE,POINT OF CARE 112 MG/DL (70-110)
[2022-04-20 18:26] LABS: GLUCOMETER DEV NAME(LOC) 2WR.2B; GLUCOSE,POINT OF CARE 83 MG/DL (70-110)
[2022-04-20] MEDS: ATORVASTATIN CALCIUM 40 MG TABLET PO SCH (20:28)
[2022-04-20] MEDS: SENNA 187 MG TABLET PO SCH (20:29)
[2022-04-20 21:00] VITALS: BP 118/70
[2022-04-20] MEDS: MELATONIN 5 MG TABLET PO PRN (21:51)
[2022-04-21] MEDS: FAMOTIDINE 20 MG TABLET PO SCH ×2 (06:09→15:33)
[2022-04-21 06:41] LABS: GLUCOMETER DEV NAME(LOC) 2WR.2B; GLUCOSE,POINT OF CARE 104 MG/DL (70-110)
[2022-04-21] MEDS: AMIODARONE HCL 200 MG TABLET PO SCH (07:53)
[2022-04-21] MEDS: DOCUSATE SODIUM 250 MG CAPSULE PO SCH ×2 (07:53→20:30)
[2022-04-21] MEDS: ETHYL ALCOHOL 62% ANTISEPTIC NASAL SANITIZER 0.6 ML AMPUL NASAL SCH ×2 (07:53→20:31)
[2022-04-21] MEDS: NITROFURANTOIN MONOHYD/M-CRYST 100 MG CAPSULE [MACROBID] PO SCH ×2 (07:53→20:31)
[2022-04-21] MEDS: METOPROLOL TARTRATE 25 MG TABLET PO SCH ×2 (07:53→20:30)
[2022-04-21] MEDS: TAMSULOSIN HCL 0.4 MG CAPSULE PO SCH ×2 (07:53→20:30)
[2022-04-21] MEDS: APIXABAN 5 MG TABLET PO SCH ×2 (07:53→20:30)
[2022-04-21] MEDS: BACLOFEN 10 MG TABLET PO SCH ×3 (07:54→20:31)
[2022-04-21 08:16] VITALS: BP 114/79
[2022-04-21 16:51] LABS: GLUCOMETER DEV NAME(LOC) 2WR.1C; GLUCOSE,POINT OF CARE 111 MG/DL (70-110)
[2022-04-21 20:20] VITALS: BP 107/68
[2022-04-21] MEDS: MELATONIN 5 MG TABLET PO PRN (20:30)
[2022-04-21] MEDS: ATORVASTATIN CALCIUM 40 MG TABLET PO SCH (20:30)
[2022-04-21] MEDS: SENNA 187 MG TABLET PO SCH (20:30)
[2022-04-21] MEDS: DOCUSATE SODIUM 283 MG/5 ML MINI-ENEMA PR PRN (21:34)
[2022-04-22] MEDS: FAMOTIDINE 20 MG TABLET PO SCH ×2 (06:41→17:38)
[2022-04-22 07:26] LABS: GLUCOMETER DEV NAME(LOC) 2WR.2B; GLUCOSE,POINT OF CARE 103 MG/DL (70-110)
[2022-04-22 08:10] VITALS: BP 117/77
[2022-04-22] MEDS: APIXABAN 5 MG TABLET PO SCH ×2 (09:04→20:35)
[2022-04-22] MEDS: DOCUSATE SODIUM 250 MG CAPSULE PO SCH ×2 (09:04→20:32)
[2022-04-22] MEDS: METOPROLOL TARTRATE 25 MG TABLET PO SCH ×2 (09:04→20:33)
[2022-04-22] MEDS: ETHYL ALCOHOL 62% ANTISEPTIC NASAL SANITIZER 0.6 ML AMPUL NASAL SCH ×2 (09:04→20:32)
[2022-04-22] MEDS: TAMSULOSIN HCL 0.4 MG CAPSULE PO SCH ×2 (09:04→20:32)
[2022-04-22] MEDS: NITROFURANTOIN MONOHYD/M-CRYST 100 MG CAPSULE [MACROBID] PO SCH ×2 (09:04→20:32)
[2022-04-22] MEDS: BACLOFEN 10 MG TABLET PO SCH ×3 (09:04→20:33)
[2022-04-22] MEDS: AMIODARONE HCL 200 MG TABLET PO SCH (09:04)
[2022-04-22 18:16] LABS: GLUCOMETER DEV NAME(LOC) 2WR.1C; GLUCOSE,POINT OF CARE 95 MG/DL (70-110)
[2022-04-22 20:00] VITALS: BP 131/93
[2022-04-22] MEDS: SENNA 187 MG TABLET PO SCH (20:32)
[2022-04-22] MEDS: MELATONIN 5 MG TABLET PO PRN (20:32)
[2022-04-22] MEDS: ATORVASTATIN CALCIUM 40 MG TABLET PO SCH (20:33)
[2022-04-23 01:00] VITALS: BP 108/71
[2022-04-23] MEDS: FAMOTIDINE 20 MG TABLET PO SCH ×2 (06:13→16:24)
[2022-04-23 06:46] LABS: GLUCOMETER DEV NAME(LOC) 2WR.2B; GLUCOSE,POINT OF CARE 113 MG/DL (70-110)
[2022-04-23 08:10] VITALS: BP 127/87
[2022-04-23] MEDS: DOCUSATE SODIUM 250 MG CAPSULE PO SCH ×2 (09:06→20:41)
[2022-04-23] MEDS: APIXABAN 5 MG TABLET PO SCH ×2 (09:06→20:41)
[2022-04-23] MEDS: NITROFURANTOIN MONOHYD/M-CRYST 100 MG CAPSULE [MACROBID] PO SCH ×2 (09:06→20:42)
[2022-04-23] MEDS: ETHYL ALCOHOL 62% ANTISEPTIC NASAL SANITIZER 0.6 ML AMPUL NASAL SCH ×2 (09:06→20:40)
[2022-04-23] MEDS: BACLOFEN 10 MG TABLET PO SCH ×3 (09:06→20:42)
[2022-04-23] MEDS: METOPROLOL TARTRATE 25 MG TABLET PO SCH ×2 (09:06→20:42)
[2022-04-23] MEDS: TAMSULOSIN HCL 0.4 MG CAPSULE PO SCH ×2 (09:07→20:42)
[2022-04-23] MEDS: AMIODARONE HCL 200 MG TABLET PO SCH (09:07)
[2022-04-23 17:52] LABS: GLUCOMETER DEV NAME(LOC) 2WR.2B; GLUCOSE,POINT OF CARE 99 MG/DL (70-110)
[2022-04-23] MEDS: ATORVASTATIN CALCIUM 40 MG TABLET PO SCH (20:42)
[2022-04-23] MEDS: SENNA 187 MG TABLET PO SCH (20:43)
[2022-04-23 20:46] VITALS: BP 108/71
[2022-04-23] MEDS: MELATONIN 5 MG TABLET PO PRN (22:38)
[2022-04-24] MEDS: FAMOTIDINE 20 MG TABLET PO SCH ×2 (06:20→15:54)
[2022-04-24 07:11] LABS: GLUCOMETER DEV NAME(LOC) 2WR.2B; GLUCOSE,POINT OF CARE 120 MG/DL (70-110)
[2022-04-24 07:40] VITALS: BP 117/78
[2022-04-24] MEDS: TAMSULOSIN HCL 0.4 MG CAPSULE PO SCH ×2 (08:12→20:23)
[2022-04-24] MEDS: METOPROLOL TARTRATE 25 MG TABLET PO SCH ×2 (08:12→20:24)
[2022-04-24] MEDS: DOCUSATE SODIUM 250 MG CAPSULE PO SCH ×2 (08:12→20:23)
[2022-04-24] MEDS: APIXABAN 5 MG TABLET PO SCH ×2 (08:12→20:24)
[2022-04-24] MEDS: BACLOFEN 10 MG TABLET PO SCH ×3 (08:12→20:23)
[2022-04-24] MEDS: NITROFURANTOIN MONOHYD/M-CRYST 100 MG CAPSULE [MACROBID] PO SCH ×2 (08:13→20:23)
[2022-04-24] MEDS: AMIODARONE HCL 200 MG TABLET PO SCH (08:13)
[2022-04-24] MEDS: ETHYL ALCOHOL 62% ANTISEPTIC NASAL SANITIZER 0.6 ML AMPUL NASAL SCH ×2 (08:13→20:24)
[2022-04-24 20:10] VITALS: BP 109/68
[2022-04-24] MEDS: SENNA 187 MG TABLET PO SCH (20:23)
[2022-04-24] MEDS: MELATONIN 5 MG TABLET PO PRN (20:23)
[2022-04-24] MEDS: ATORVASTATIN CALCIUM 40 MG TABLET PO SCH (20:24)
[2022-04-25] MEDS: FAMOTIDINE 20 MG TABLET PO SCH ×2 (06:17→15:44)
[2022-04-25] MEDS: DOCUSATE SODIUM 250 MG CAPSULE PO SCH ×2 (08:20→20:24)
[2022-04-25] MEDS: ETHYL ALCOHOL 62% ANTISEPTIC NASAL SANITIZER 0.6 ML AMPUL NASAL SCH ×2 (08:20→20:23)
[2022-04-25] MEDS: NITROFURANTOIN MONOHYD/M-CRYST 100 MG CAPSULE [MACROBID] PO SCH ×2 (08:20→20:23)
[2022-04-25] MEDS: TAMSULOSIN HCL 0.4 MG CAPSULE PO SCH ×2 (08:20→20:23)
[2022-04-25] MEDS: AMIODARONE HCL 200 MG TABLET PO SCH (08:21)
[2022-04-25] MEDS: APIXABAN 5 MG TABLET PO SCH ×2 (08:21→20:24)
[2022-04-25] MEDS: BACLOFEN 10 MG TABLET PO SCH ×3 (08:21→20:23)
[2022-04-25] MEDS: METOPROLOL TARTRATE 25 MG TABLET PO SCH ×2 (08:21→20:24)
[2022-04-25 08:56] VITALS: BP 130/79
[2022-04-25 20:15] VITALS: BP 112/64
[2022-04-25] MEDS: ATORVASTATIN CALCIUM 40 MG TABLET PO SCH (20:23)
[2022-04-25] MEDS: MELATONIN 5 MG TABLET PO PRN (20:23)
[2022-04-25] MEDS: SENNA 187 MG TABLET PO SCH (20:24)
[2022-04-26] MEDS: FAMOTIDINE 20 MG TABLET PO SCH ×2 (06:18→17:11)
[2022-04-26 08:30] VITALS: BP 122/58
[2022-04-26] MEDS: APIXABAN 5 MG TABLET PO SCH ×2 (08:32→20:10)
[2022-04-26] MEDS: DOCUSATE SODIUM 250 MG CAPSULE PO SCH ×2 (08:32→20:10)
[2022-04-26] MEDS: NITROFURANTOIN MONOHYD/M-CRYST 100 MG CAPSULE [MACROBID] PO SCH ×2 (08:33→20:10)
[2022-04-26] MEDS: TAMSULOSIN HCL 0.4 MG CAPSULE PO SCH ×2 (08:33→20:10)
[2022-04-26] MEDS: BACLOFEN 10 MG TABLET PO SCH ×3 (08:33→20:10)
[2022-04-26] MEDS: METOPROLOL TARTRATE 25 MG TABLET PO SCH ×2 (08:34→20:10)
[2022-04-26] MEDS: AMIODARONE HCL 200 MG TABLET PO SCH (08:34)
[2022-04-26] MEDS: ETHYL ALCOHOL 62% ANTISEPTIC NASAL SANITIZER 0.6 ML AMPUL NASAL SCH ×2 (08:50→20:10)
[2022-04-26] MEDS: ATORVASTATIN CALCIUM 40 MG TABLET PO SCH (20:10)
[2022-04-26] MEDS: SENNA 187 MG TABLET PO SCH (20:10)
[2022-04-26] MEDS: MELATONIN 5 MG TABLET PO PRN (20:10)
[2022-04-26 20:14] VITALS: BP 118/77
[2022-04-27] MEDS: FAMOTIDINE 20 MG TABLET PO SCH ×2 (06:30→17:13)
[2022-04-27 08:30] VITALS: BP 132/92
[2022-04-27] MEDS: ETHYL ALCOHOL 62% ANTISEPTIC NASAL SANITIZER 0.6 ML AMPUL NASAL SCH ×2 (08:34→20:31)
[2022-04-27] MEDS: NITROFURANTOIN MONOHYD/M-CRYST 100 MG CAPSULE [MACROBID] PO SCH ×2 (08:34→20:30)
[2022-04-27] MEDS: APIXABAN 5 MG TABLET PO SCH ×2 (08:34→20:30)
[2022-04-27] MEDS: AMIODARONE HCL 200 MG TABLET PO SCH (08:35)
[2022-04-27] MEDS: DOCUSATE SODIUM 250 MG CAPSULE PO SCH ×2 (08:35→20:30)
[2022-04-27] MEDS: BACLOFEN 10 MG TABLET PO SCH ×3 (08:35→20:30)
[2022-04-27] MEDS: TAMSULOSIN HCL 0.4 MG CAPSULE PO SCH ×2 (08:35→20:30)
[2022-04-27] MEDS: METOPROLOL TARTRATE 25 MG TABLET PO SCH ×2 (08:36→20:30)
[2022-04-27] MEDS: MELATONIN 5 MG TABLET PO PRN (20:30)
[2022-04-27] MEDS: SENNA 187 MG TABLET PO SCH (20:30)
[2022-04-27] MEDS: ATORVASTATIN CALCIUM 40 MG TABLET PO SCH (20:30)
[2022-04-27 22:09] VITALS: BP 134/83
[2022-04-28] MEDS: FAMOTIDINE 20 MG TABLET PO SCH (06:29)
[2022-04-28] MEDS: ETHYL ALCOHOL 62% ANTISEPTIC NASAL SANITIZER 0.6 ML AMPUL NASAL SCH (07:55)
[2022-04-28] MEDS: NITROFURANTOIN MONOHYD/M-CRYST 100 MG CAPSULE [MACROBID] PO SCH (07:56)
[2022-04-28] MEDS: BACLOFEN 10 MG TABLET PO SCH (07:56)
[2022-04-28] MEDS: DOCUSATE SODIUM 250 MG CAPSULE PO SCH (07:56)
[2022-04-28] MEDS: TAMSULOSIN HCL 0.4 MG CAPSULE PO SCH (07:57)
[2022-04-28] MEDS: AMIODARONE HCL 200 MG TABLET PO SCH (07:57)
[2022-04-28] MEDS: METOPROLOL TARTRATE 25 MG TABLET PO SCH (07:57)
[2022-04-28] MEDS: APIXABAN 5 MG TABLET PO SCH (07:57)
[2022-04-28 08:19] VITALS: BP 126/64
[2022-04-28] MEDS ORDERED: FAMO20 PO (09:38)
[2022-04-28] MEDS ORDERED: TAMS-13 PO (09:38)
[2022-04-28] MEDS ORDERED: BACL10TA PO (09:38)
[2022-04-28] MEDS ORDERED: APIX5TAB PO (09:38)
[2022-04-28] MEDS ORDERED: ATOR40TA71 PO (09:38)
[2022-04-28] MEDS ORDERED: AMIO200 PO (09:38)
[2022-04-28] MEDS ORDERED: METO25 PO (09:38)
[2022-04-28 12:35] VITALS: BP 124/74
== END 2022-04-28 14:40 | disposition home health service (06) | DRG 64 ==
LOC: 2WR 20:50
PROVIDERS: ADMIT Physical Medicine & Rehabilitation; ATTEND Physical Medicine & Rehabilitation
DX: I63.40 Cerebral infarction due to embolism of unspecified cerebral artery (principal); I21.A1 Myocardial infarction type 2; E46 Unspecified protein-calorie malnutrition; G81.91 Hemiplegia, unspecified affecting right dominant side; N39.0 Urinary tract infection, site not specified; E78.5 Hyperlipidemia, unspecified; R47.01 Aphasia; E11.9 Type 2 diabetes mellitus without complications; I10 Essential (primary) hypertension; I48.0 Paroxysmal atrial fibrillation; G83.14 Monoplegia of lower limb affecting left nondominant side; R77.8 Other specified abnormalities of plasma proteins; G31.84 Mild cognitive impairment of uncertain or unknown etiology; B96.20 Unspecified Escherichia coli [E. coli] as the cause of diseases classified elsewhere; I65.21 Occlusion and stenosis of right carotid artery; R33.9 Retention of urine, unspecified; I95.9 Hypotension, unspecified; D75.839 Thrombocytosis, unspecified; D21.9 Benign neoplasm of connective and other soft tissue, unspecified; Z86.73 Personal history of transient ischemic attack (TIA), and cerebral infarction without residual deficits; Z79.01 Long term (current) use of anticoagulants; Z68.20 Body mass index [BMI] 20.0-20.9, adult
CPT/HCPCS: 80048; 80053; 81001; 82962; 84153; 85025; 87081; 87086; 87186; 92507; 92523; 97110; 97112; 97116; 97150; 97163; 97166; 97530; 97535; 99366; Q9967